=== PATIENT | female | born 2000 ===

== ENCOUNTER 2024-11-21 12:45 | Inpatient (IN) | payer OTHER ==
[~2024-11-21] VITALS: Ht 152.4 cm; Wt 3.2 kg
[2024-12-15 06:04] VITALS: BP 116/75
[2024-12-15] MEDS ORDERED: PRENATAL CAPLE1 EAC1 PO (06:25)
[2024-12-15] MEDS ORDERED: RINGERS SOLUTION,LACTATED 1,000 ML IV SCH (06:30)
[2024-12-15] MEDS ORDERED: AMPICILLIN SODIUM 2,000 MG VIAL IV STA (06:34)
[2024-12-15] MEDS ORDERED: OXYTOCIN 500 ML IV SCH (06:45)
[2024-12-15 06:54] LABS: URINE APPEARANCE Cloudy; URINE BILIRRUBIN Negative (NEGATIVE); URINE BLOOD Negative; URINE COLOR Yellow; URINE GLUCOSE Negative (NEGATIVE); URINE KETONE Negative (NEGATIVE); URINE LEUKOCYTE Moderate; URINE NITRATE Negative; URINE PROTEIN Negative (NEGATIVE); URINE UROBILINOGEN 0.2 E.U./dl
[2024-12-15 06:55] LABS: URINE CAST 3.68 uL (0.0-1.40); URINE EPITHELIAL CELLS 61.1 uL (0.0-38.8); URINE RBC 14.5 uL (0.0-20.8); URINE WBC 233.2 uL (0.0-23.2)
[2024-12-15 06:58] LABS: URINE BACTERIA > 9821.5 uL (0.0-1933)
[2024-12-15 07:06] LABS: URINE YEAST NEGATIVE /hpf
[2024-12-15 07:11] LABS: BASO % 0.2 % (0.1-1.2); EOS # 0.25 (0.04-0.54); EOS % 2.3 % (0.7-7.0); HEMATOCRIT 33.5 % (34.1-44.9); HEMOGLOBIN 11.4 g/dL (11.2-15.7); LYMPH # 2.49 (1.18-3.74); LYMPH % 22.6 % (19.3-53.1); MONO # 0.78 (0.24-0.82); MONO % 7.1 % (4.7-12.5); NEUT # 7.46 (1.56-6.13); NEUT % 67.4 % (34.0-71.1); PLATELET COUNT 332 K/uL (163-369); RED BLOOD COUNT 4.22 M/uL (3.93-5.22); RED CELL DISTRIBUTION WIDTH 14.6 % (11.6-14.4)
[2024-12-15 07:19] VITALS: BP 114/73
[2024-12-15 07:44] LABS: INR < 0.93; PARTIAL THROMBOPLASTIN TIME 23.5 SECONDS (22.0-34.0)
[2024-12-15 08:09] LABS: ALBUMIN 2.7 gm/dL (3.4-5.0); BILIRUBIN TOTAL 0.32 mg/dL (0.3-1.2); CALCIUM 9.4 mg/dL (8.5-10.1); CREATININE SERUM 0.55 mg/dL (0.55-1.02); GFR 134.67; POTASSIUM 4.6 mEq/L (3.5-5.1); TOTAL PROTEIN 6.7 gm/dL (6.4-8.2)
[2024-12-15] MEDS ORDERED: AMPICILLIN SODIUM 1,000 MG VIAL IV SCH (09:00)
[2024-12-15 11:10] VITALS: BP 111/69
[2024-12-15] MEDS ORDERED: OXYTOCIN 10 UNITS/ML VIAL ONE (12:48)
[2024-12-15] MEDS ORDERED: CHLORHEXIDINE GLUCONATE 120 ML BOTTLE TOP ONE (12:48)
[2024-12-15] MEDS ORDERED: ERYTHROMYCIN BASE OPHT 1GM EACH TUBE OP ONE (12:48)
[2024-12-15] MEDS ORDERED: MORPHINE SULFATE 4 MG/ML CARTRIDGE IV PRN (14:30)
[2024-12-15 19:43] LABS: BASO % 0.2 % (0.1-1.2); EOS # 0.04 (0.04-0.54); EOS % 0.2 % (0.7-7.0); HEMATOCRIT 31.7 % (34.1-44.9); HEMOGLOBIN 10.9 g/dL (11.2-15.7); LYMPH # 1.83 (1.18-3.74); LYMPH % 11.2 % (19.3-53.1); MEAN CORPUSCULAR HEMOGLOBIN 26.7 pg (25.6-32.2); MONO # 1.08 (0.24-0.82); MONO % 6.6 % (4.7-12.5); NEUT # 13.34 (1.56-6.13); NEUT % 81.4 % (34.0-71.1); PLATELET COUNT 332 K/uL (163-369); RED BLOOD COUNT 4.09 M/uL (3.93-5.22); RED CELL DISTRIBUTION WIDTH 14.5 % (11.6-14.4)
[2024-12-15] MEDS ORDERED: CEFAZOLIN SODIUM 1,000 MG VIAL IV SCH (20:00)
[2024-12-15] MEDS ORDERED: CEFAZOLIN SODIUM 1,000 MG VIAL ONE (20:34)
[2024-12-15 21:33] VITALS: BP 124/75
[2024-12-15 23:50] VITALS: BP 111/72
[2024-12-16 04:30] VITALS: BP 115/74
[2024-12-16] MEDS ORDERED: ACETAMINOPHEN 500 MG GEL..CAP PO PRN (08:15)
[2024-12-16] MEDS ORDERED: IBUprofen 800 MG TABLET PO PRN (08:15)
[2024-12-16 08:40] VITALS: BP 114/62
[2024-12-16 14:35] VITALS: BP 103/69
[2024-12-16 17:54] VITALS: BP 103/69
[2024-12-17] VITALS: BP 112/76
[2024-12-17 08:04] VITALS: BP 101/63
[2024-12-17] MEDS ORDERED: IBUPROFEN800 MG PO (09:40)
== END 2024-12-17 13:33 | disposition home or self-care (01) | DRG 788 ==
LOC: OB/GYN 12-08 12:44 → LDR 12-15 05:37 → OB/GYN 12-15 05:37 → O/R 12-15 13:26 → OB/GYN 12-15 16:45
PROVIDERS: ADMIT Specialist; ATTEND Specialist
PROC: 4A1HXCZ Monitoring of Products of Conception, Cardiac Rate, External Approach (ICD-10-PCS; 2024-12-15)
PROC: 10D00Z1 Extraction of Products of Conception, Low, Open Approach (ICD-10-PCS; principal; 2024-12-15 13:00)
DX: O48.0 Post-term pregnancy (principal); O99.824 Streptococcus B carrier state complicating childbirth; Z3A.41 41 weeks gestation of pregnancy; Z37.0 Single live birth